=== PATIENT | male | born 1960 | race Asian ===

== ENCOUNTER 2023-12-21 06:42 | Day surgery (SDC) | payer OTHER ==
[~2023-12-21] VITALS: Ht 185.4 cm; Wt 168.1 kg
[~2023-12-21 06:42] MED LIST: APIX5TAB PO; BACL20TA PO; DOXY100C5 PO; FAMO20 PO; FLUT16H NASAL; FLUT1DIS26 IH; FURO40TA5 PO; GABA-1181 PO; METO-416 PO; MONT-35 PO; MONT-40 PO; ROSU20TA73 PO; SACU1TAB7 PO; SPIR-37 PO
[2023-12-21] MEDS ORDERED: SODIUM CHLORIDE 0.9% 1,000 ML ONE (08:04)
[2023-12-21] MEDS ORDERED: FentaNYL CITRATE PF 100 MCG/2 ML VIAL ONE (08:26)
[2023-12-21] MEDS ORDERED: MIDAZOLAM HCL 2 MG/2 ML VIAL ONE (08:26)
[2023-12-21] MEDS: SODIUM CHLORIDE 0.9% 1,000 ML IV ONE (08:51)
[2023-12-21 09:26] VITALS: PULSE 78; RESP 14; O2SAT 98
[2023-12-21] MEDS ORDERED: MethylPREDNISolone SOD SUCC 125 MG/2 ML VIAL ONE (09:49)
[2023-12-21] MEDS: MethylPREDNISolone SOD SUCC 125 MG/2 ML VIAL IVP ONE (09:52)
[2023-12-21] MEDS ORDERED: LEVALBUTEROL 1.25 MG/0.5 ML NEB SOLUTION NEB ONE (12:00)
[2023-12-21] MEDS ORDERED: LIDOCAINE 4% 50 ML SOLUTION ONE (12:00)
[2023-12-21] MEDS ORDERED: LIDOCAINE 2% 11 ML JELLY ONE (12:00)
[2023-12-21] MEDS ORDERED: BENZOCAINE 20% 50 MCG/SPRAY 57 GM ONE (12:00)
== END 2023-12-21 12:20 | disposition home or self-care (01) ==
LOC: SURGERY 06:42
PROVIDERS: ATTEND Internal Medicine Critical Care Medicine
DX: J38.4 Edema of larynx (principal); B37.0 Candidal stomatitis; Z79.899 Other long term (current) drug therapy; I50.9 Heart failure, unspecified; J44.9 Chronic obstructive pulmonary disease, unspecified; Z88.0 Allergy status to penicillin
CPT/HCPCS: 31623; 87206; 87101; 87220; 87070; 88108; 31624; 94640; 71045; 87015; 93005; J3010; J2250; J2930; Q9967; J7030; Z7610